=== PATIENT | male | born 1945 | race Caucasian/White ===

== ENCOUNTER 2022-02-17 10:05 | Outpatient (CLI) | payer OTHER, SELFPAY ==
--- NOTE | 2022-02-17 09:45 | DI.RAD_ITS ---
Exam(s) XR STANDING ALIGNMENT EXAM: XR STANDING ALIGNMENT CLINICAL HISTORY: bilateral knee DJD. TECHNIQUE: 2D digital imaging was performed. COMPARISON: No exams were available for comparison FINDINGS: Multiple views. There is [id number] narrowing of the medial compartments of both knees. Normal height of the later al compartments but small marginal osteophytes off the lateral compartments noted bilaterally. Mild degenerative changes in both hips. Ankles unremarkable. IMPRESSION: Advanced narrowing of the medial compartments of both knees. DATA REPOSITORY: RADIATION DOSE DELIVERED:
== END 2022-02-17 10:06 | disposition home or self-care (01) ==
LOC: DIORS 10:07
PROVIDERS: Visit Provider Physician Assistant
DX: M17.0 Bilateral primary osteoarthritis of knee (principal)
CPT/HCPCS: 77073

== ENCOUNTER 2022-04-17 03:16 | Outpatient (CLI) | payer OTHER, SELFPAY ==
[2022-04-17 14:24] LABS: HGB 13.6 g/dL (13.5-17.5); MCH 32.3 pg (27.0-33.0); MCHC 32.4 % (32.0-36.0); MCV 100 fL (80-95); MPV 10.9 fL (8.0-11.0); Platelet Count 158 10^3/uL (130-400); RBC 4.21 10^6/uL (4.36-5.78); RDW 14.2 % (11.8-14.1); RDW-SD 52.5 fL; WBC 6.95 10^3/uL (4.4-10.8)
[2022-04-17 14:54] LABS: Anion Gap 11.8 mmol/L (3-11); BUN 12 mg/dL (7-18); CO2 23.2 mmol/L (21.0-32.0); CREATININE 1.2 mg/dL (0.70-1.30); Calcium 8.8 mg/dL (8.5-10.1); Chloride 106 mmol/L (98-107); Glucose 115 mg/dL (74-106); Potassium 4.1 mmol/L (3.5-5.1); Sodium 141 mmol/L (136-145)
== END 2022-04-17 03:17 | disposition home or self-care (01) ==
LOC: LBO 03:16
PROVIDERS: Visit Provider Student in an Organized Health Care Education/Training Program
DX: M25.562 Pain in left knee (principal); M17.12 Unilateral primary osteoarthritis, left knee; Z01.818 Encounter for other preprocedural examination; Z01.812 Encounter for preprocedural laboratory examination
CPT/HCPCS: 36415; 80048; 85027